=== PATIENT | male | born 1975 | race Caucasian/White ===

== ENCOUNTER 2016-11-13 19:58 | Inpatient (IN) ==
[2016-11-13] MEDS ORDERED: PANTOPRAZOLE 40 MG VIAL IV STA (20:48)
[2016-11-13] MEDS ORDERED: METOCLOPRAMIDE 10 MG/2 ML VIAL IV STA (20:48)
[2016-11-13] MEDS ORDERED: ONDANSETRON 4 MG/2 ML VIAL IV STA (20:48)
[2016-11-13] MEDS ORDERED: PANTOPRAZOLE 40 MG VIAL IV ONE (20:53)
[2016-11-13] MEDS ORDERED: METOCLOPRAMIDE 10 MG/2 ML VIAL ONE (20:53)
[2016-11-13] MEDS ORDERED: ONDANSETRON 4 MG/2 ML VIAL ONE (20:53)
--- NOTE | 2016-11-13 20:53 | Emergency Department Note ---
Arrival - Arrival Chief Complaint: Abdominal / Flank Pain Stated Complaint: abd bloating/pain/vomitting/constipation/fever ED Nursing Triage Note: pt presented to triage ambulatory with c/o abd pain and fever x [address] christian saw him on 11/11/16 for same symptoms. pt states no relief with new meds and now c/o n/v Mode of Arrival: Ambulatory Source: Patient Time Seen by Provider: 11/13/16 20:48 - History of Present Illness HPI Narrative: This 40-year-old white male presents 48 hours after his last visit here with complaints of abdominal distention, nausea, vomiting, and constipation. The patient's distention is gotten to the point that he has trouble buttoning his shirt. Of note on his last visit 2 days ago was a totally normal CT scan of the abdomen. He does not complain of chills, fever, heartburn, belching, water brash, or history of prior GI disease. Currently he appears uncomfortable but in no acute distress. Onset (ago): day(s) (Patient presents 5 days post onset of symptoms) Allergies/Adverse Reactions: Allergies Allergy/AdvReac Type Severity Reaction Status Date / Time adhesive tape Allergy Intermediate RASH Verified 11/13/16 20:22 Cefaclor Allergy Intermediate RASH Verified 11/13/16 20:22 Erythromycin Base Allergy Intermediate RASH Verified 11/13/16 20:22 [From Ilosone] promethazine [From Phenergan] Allergy Intermediate RASH Verified 11/13/16 20:22 Home Medications: Home Medications Medication Instructions Recorded Confirmed Type Ciprofloxacin Tab [Cipro Tab] 500 mg PO Q12HR 10 Days 11/11/16 Rx Dicyclomine Cap/Tab [Bentyl 20 mg PO QID PRN #20 tablet 11/11/16 Rx Cap/Tab] Ondansetron [Ondansetron Odt] 8 mg PO Q4H PRN #10 tab.rapdis 11/11/16 Rx Pramipexole Di-HCl [Mirapex] 0.75 mg PO BEDTIME 11/11/16 11/11/16 History metroNIDAZOLE TAB [Flagyl Tab] 250 mg PO TID 10 Days 11/11/16 Rx Review of System - Review of System 12 point system: reviewed and no additional remarkable complaints except as stated - Review of System Constitutional: Present: as per HPI Gastrointestinal: Present: as per HPI Medical,Surgical,& Family Hx - Medical History Respiratory: History of: Obstructive Sleep Apnea - Social History Smoking Status: Never smoker Frequency of Alcohol Use: None Type of Drug Use: None Exam Physical Examination: GENERAL: Obese white male in no acute distress. HEENT: Normocephalic. No trauma. Moist mucous membranes. EOMI. PERRLA. ENT NML NECK: Supple. No adenopathy. CARDIAC: Regular. No murmurs. Heart rate 93 CHEST: Clear to auscultation. No respiratory distress. O2 sat 97% ABDOMEN: Firm, distended, with upper quadrant tenderness and hypoactive bowel sounds. EXTREMITIES: No trauma. Normal ROM. No pedal edema. SKIN: No diaphoresis. No rash. NEURO: Alert. Neuro intact. No focal deficits. Vital Signs: Vital Signs Temperature 98.5 F 11/13/16 21:22 Pulse Rate 93 H 11/13/16 21:22 Respiratory Rate 18 11/13/16 21:22 Blood Pressure 129/98 11/13/16 21:22 O2 Sat by Pulse Oximetry 97 11/13/16 20:23 Course - Reevaluation(s) Reevaluation #1: Advised patient he would require hospitalization for further evaluation of early onset pancreatitis - Consultations Consultation #1: Discussed with hospitalist service who will admit for further evaluation treatment. Results - Labs CBC & BMP: 11/13/16 20:36 11/13/16 20:36 Labs: I have reviewed the laboratory noted its gross normality. - Diagnostic Findings Procedure: Abdominal x-ray: image reviewed by me, report reviewed by me ( Diffuse feces and colonic gas with some stacking of small bowel), CT Abdomen and Pelvis: image reviewed by me, report reviewed by me (Evidence of early pancreatitis) Disposition Clinical Impression: Pancreatitis Case discussed with: patient, patient's family Disposition: Still a Patient Condition: Guarded Time of Disposition: 00:48
[2016-11-13 20:54] LABS: Basophils # 0.1 10*3/uL (0.0-0.2); Basophils % 0.7 % (0.0-0.8); Eosinophils # 0.2 10*3/uL (0.0-0.87); Eosinophils % 2.6 % (0.00-10.9); Hemoglobin 14.6 GM/DL (14.0-18.0); Immature Granulocytes % 0.4 %; Immature Granulocytes Absolute 0.04 #; Lymphocytes # 2.5 10*3/uL (1.4-4.0); Lymphocytes % 27.6 % (21.2-54.2); Mean Corpuscular HGB Conc 33.2 GM/DL (32-36); Mean Corpuscular Hemoglobin 29 PG (27-34); Mean Corpuscular Volume 86.3 FL (87-102); Mean Platelet Volume 9.7 FL (9.6-12.0); Monocytes # 0.8 10*3/uL (0.11-0.8); Monocytes % 8.7 % (1.7-12.7); Neutrophils # 5.4 10*3/uL (1.4-7.4); Platelet Count 308 T/CUMM (130-400); Red Cell Distribution Width 13.6 % (9.3-17.3); White Blood Count 9.1 T/CUMM (4-12)
[2016-11-13 21:10] LABS: Alanine Aminotransferase 48 U/L (16-61); Albumin 3.4 G/DL (3.4-5.0); Alkaline Phosphatase 65 U/L (45-117); Amylase 75 U/L (25-115); Aspartate Amino Transferase 32 U/L (0-37); Bilirubin,Total < 0.39 MG/DL (0.2-1.0); Blood Urea Nitrogen 15 MG/DL (7-18); Glucose 93 MG/DL (74-106); Osmolality,Calculated 281.3 MOS/KG (273-304); Potassium 3.5 MMOL/L (3.5-5.1); Sodium 141 MMOL/L (136-145); Total Protein 7.5 G/DL (6.4-8.3)
[2016-11-13 21:33] LABS: Lactic Acid 1.5 MMOL/L (0.4-2.0)
[2016-11-13] MEDS ORDERED: SODIUM CHLORIDE 0.9% 1,000 ML IV STA (22:00)
[2016-11-13 23:31] LABS: Apearance,Urine CLEAR (Clear); Bilirubin,Urine Negative (Negative); Blood, Urine Negative (Negative); Glucose,Urine (UA) Negative (Negative); Ketones,Urine Negative (Negative); Mucus,Urine Occasional /LPF (Occasional); Nitrite,Urine Negative (Negative); Protein,Urine Negative; Squamous Epithelial Cell,Urine Occasional /HPF (0-10); Urine Color Yellow (Yellow); Urine Specific Gravity 1.014 (1.001-1.035); Urine Urobilinogen < 2.0 EU/DL (0.2-1.0)
[2016-11-14] MEDS ORDERED: SODIUM CHLORIDE 0.9% 1,000 ML IV SCH (02:33)
[2016-11-14] MEDS ORDERED: MORPHINE 2 MG/1 ML SYRINGE IV PRN (02:33)
[2016-11-14] MEDS ORDERED: ONDANSETRON 4 MG/2 ML VIAL IV PRN (02:33)
[2016-11-14] MEDS ORDERED: KETOROLAC 30 MG/1 ML VIAL IV PRN (02:33)
[2016-11-14] MEDS: CIPROFLOXACIN INJ 400 MG in PREMIX 1 EACH IV SCH ×2 (03:11→22:00)
[2016-11-14] MEDS: metroNIDAZOLE INJ 500 MG in PREMIX 1 EACH IV SCH ×3 (04:57→20:17)
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
[2016-11-14] MEDS ORDERED: ONDANSETRON ODT 4 MG TABLET PO PRN (05:40)
[2016-11-14] MEDS ORDERED: ZALEPLON 5 MG CAPSULE PO PRN ×2 (05:40→20:27)
[2016-11-14 06:32] LABS: Basophils # 0.1 10*3/uL (0.0-0.2); Basophils % 0.8 % (0.0-0.8); Eosinophils # 0.2 10*3/uL (0.0-0.87); Eosinophils % 2.7 % (0.00-10.9); Hematocrit 39.9 VOL% (42.0-52.0); Hemoglobin 13.4 GM/DL (14.0-18.0); Immature Granulocytes % 0.4 %; Immature Granulocytes Absolute 0.03 #; Lymphocytes # 2.1 10*3/uL (1.4-4.0); Lymphocytes % 27.1 % (21.2-54.2); Mean Corpuscular HGB Conc 33.6 GM/DL (32-36); Mean Corpuscular Hemoglobin 29 PG (27-34); Mean Corpuscular Volume 86.7 FL (87-102); Mean Platelet Volume 9.9 FL (9.6-12.0); Monocytes # 0.7 10*3/uL (0.11-0.8); Monocytes % 9.3 % (1.7-12.7); Neutrophils # 4.6 10*3/uL (1.4-7.4); Neutrophils % 59.7 % (38.7-73.9); Platelet Count 257 T/CUMM (130-400); White Blood Count 7.8 T/CUMM (4-12)
--- NOTE | 2016-11-14 06:33 | XRay Report ---
XR abdomen 2V Indication: Abdominal pain Comparison: 11 November 2016 Findings: No free fluid or free air seen. Increased stool volume is seen in the colon. The bowel gas pattern otherwise appears within normal limits. No abnormal calcifications are present. No other abnormality is identified. Impression: Increased stool volume in the colon, may indicate constipation. PROCEDURE INTERPRETED AT [facility] DEPARTMENT OF RADIOLOGY Final Report Signed by: Dr. Yo Pryor
--- NOTE | 2016-11-14 06:58 | CT Report ---
CT abdomen pelvis Indication: Abdominal pain Comparison: None available Technique: Axial CT imaging of the abdomen and pelvis is performed with intravenous and oral contrast. Contrast dose is 100 cc of Omnipaque 350. Findings: Cardiac and lung bases are within normal limits CT abdomen: Trace amount of stranding is seen adjacent to the inferior tail of the pancreas. Remaining pancreas appears within normal limits The liver spleen and adrenal glands are normal in size and enhancement. No evidence of focal lesion is demonstrated in these solid organs. Kidneys are normal in size and enhancement. No evidence of hydronephrosis or nephrolithiasis is seen. The bowel caliber is normal and no wall thickening or adjacent inflammatory change is seen. No evidence of free fluid or free air is present. Appendix appears normal. CT pelvis: The pelvic bowel appears within normal limits. Bladder shows no evidence of abnormality. The pelvic organs show no evidence of abnormality Impression: Trace amount of stranding adjacent to tail of pancreas may indicate mild pancreatitis. This CT exam was performed using one or more the following dose reduction techniques: Automated exposure control, adjustment of the MA and/or KV according to patient size, or use of iterative reconstruction technique. PROCEDURE INTERPRETED AT [facility] DEPARTMENT OF RADIOLOGY Final Report Signed by: Dr. Yo Pryor
[2016-11-14 07:11] LABS: Albumin 2.9 G/DL (3.4-5.0); Bilirubin,Total 1.5 MG/DL (0.2-1.0); Calcium 8.1 MG/DL (8.5-10.1); Osmolality,Calculated 279.4 MOS/KG (273-304); Potassium 3.7 MMOL/L (3.5-5.1); Risk Ratio 3.49; Total Protein 6.2 G/DL (6.4-8.3); VLDL CHOLESTEROL 35.6 MG/DL
--- NOTE | 2016-11-14 07:51 | Ultrasound Report ---
Right upper quadrant ultrasound Indication: Abdominal Pain Findings: The liver is normal in size and echogenicity. The gallbladder is fluid-filled without evidence of stones or sludge. The gallbladder wall thickness is 3.0 mm . The common bile duct measures 8.0 mm. The visualized portion of the pancreas appear within normal limits The right kidney is normal in size and echogenicity and measures 12.3 cm . No free fluid or free air seen. Impression: No evidence of abnormality demonstrated. Ultrasound images stored and captured. PROCEDURE INTERPRETED AT [facility] DEPARTMENT OF RADIOLOGY Final Report Signed by: Dr. Yo Pryor
--- NOTE | 2016-11-14 09:01 | Hospitalist Progress Note ---
Assessment and Plan (1) Hypertension Status: Acute Assessment and plan: His blood pressure today is 132/71. I will continue his home medications. Current Visit: Yes Qualifiers: Hypertension type: essential hypertension Qualified Code(s): I10 - Essential (primary) hypertension (2) Pancreatitis Status: Acute Assessment and plan: Continues to have moderate abdominal pain. He is not experiencing nausea and vomiting. CT scan of the abdomen and pelvis demonstrated stranding of the tail of the pancreas and no abnormalities of the gallbladder. An ultrasound of the gallbladder demonstrated it to be normal. Laboratory testing demonstrated amylase 75, lipase 176, normal ALT and AST, and total bilirubin 1.5. I have consulted gastroenterology for further evaluation. In the meantime he is n.p.o. and is receiving intravenous sodium chloride infusion. Current Visit: Yes Qualifiers: Chronicity: acute Pancreatitis type: idiopathic Acute pancreatitis complication: no infection or necrosis Qualified Code(s): K85.00 - Idiopathic acute pancreatitis without necrosis or infection Hospitalist: Subjective Interval history: Patient was admitted to the hospital last night with pancreatitis. A CT scan of the abdomen and pelvis and an ultrasound of the gallbladder have demonstrated no significant abnormalities other than pancreatitis of the tail of the pancreas. He continues to experience moderate abdominal pain. He is not experiencing nausea and vomiting. He has been placed on an n.p.o. diet. Exam - Constitutional Vitals: Period Temp Pulse Resp BP Sys/Crawford Pulse Ox Last 24 Hr 96.2 F-98.5 F 65-93 18-22 111-132/66-98 93-97 General appearance: no acute distress, over weight - Head Head exam: Present: normal inspection - Neck Neck exam: Present: normal inspection - Respiratory Respiratory exam: Present: clear to auscultation bilaterally - Cardiovascular Cardiovascular exam: Present: regular rate and rhythm - GI/Abdominal GI/Abdominal exam: Present: normal bowel sounds, soft, other (Nontender with no palpable masses or hepatosplenomegaly.) - Extremities Exam Extremities exam: Present: normal inspection - Skin Skin exam: Present: normal color, warm, intact Results - Labs CBC & BMP: 11/14/16 05:34 11/14/16 05:34
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
[2016-11-14] MEDS: SODIUM CHLOR 0.9% KCL 20 MEQ 20 MEQ/1,000 ML BAG IV SCH ×2 (11:36→20:16)
[2016-11-14] MEDS: DOCUSATE SODIUM 100 MG CAPSULE PO PRN ×2 (11:42→20:16)
[2016-11-14] MEDS: ATENOLOL/CHLORTHALIDONE 50-25 MG TABLET PO SCH (11:42)
[2016-11-14] MEDS: PANTOPRAZOLE 40 MG TABLET PO SCH (11:42)
[2016-11-14] MEDS: ENOXAPARIN 40 MG/0.4 ML SYRINGE SUBCUT SCH (15:35)
[2016-11-14] MEDS: PRAMIPEXOLE 0.25 MG TABLET PO SCH (20:16)
[2016-11-14] MEDS ORDERED: ZOLPIDEM 5 MG TABLET PO PRN (20:51)
[2016-11-15] MEDS: metroNIDAZOLE INJ 500 MG in PREMIX 1 EACH IV SCH ×3 (03:19→22:18)
[2016-11-15 06:24] LABS: Basophils # 0.1 10*3/uL (0.0-0.2); Basophils % 0.5 % (0.0-0.8); Eosinophils # 0.2 10*3/uL (0.0-0.87); Hematocrit 42.5 VOL% (42.0-52.0); Hemoglobin 13.9 GM/DL (14.0-18.0); Immature Granulocytes % 0.4 %; Immature Granulocytes Absolute 0.04 #; Lymphocytes % 20.5 % (21.2-54.2); Mean Corpuscular HGB Conc 32.7 GM/DL (32-36); Mean Corpuscular Hemoglobin 29 PG (27-34); Mean Corpuscular Volume 87.6 FL (87-102); Mean Platelet Volume 10.1 FL (9.6-12.0); Monocytes # 0.8 10*3/uL (0.11-0.8); Monocytes % 7.9 % (1.7-12.7); Neutrophils # 6.7 10*3/uL (1.4-7.4); Neutrophils % 68.7 % (38.7-73.9); Platelet Count 291 T/CUMM (130-400); Red Blood Count 4.85 MC/CUMM (3.8-5.5); Red Cell Distribution Width 14.2 % (9.3-17.3); White Blood Count 9.7 T/CUMM (4-12)
[2016-11-15 06:48] LABS: Albumin 3.1 G/DL (3.4-5.0); Calcium 8.4 MG/DL (8.5-10.1); Osmolality,Calculated 277.4 MOS/KG (273-304); Potassium 4.2 MMOL/L (3.5-5.1); Total Protein 6.6 G/DL (6.4-8.3)
[2016-11-15] MEDS: CIPROFLOXACIN INJ 400 MG in PREMIX 1 EACH IV SCH ×2 (09:54→20:46)
--- NOTE | 2016-11-15 10:57 | Hospitalist Progress Note ---
Assessment and Plan (1) Hypertension Status: Acute Assessment and plan: His blood pressure today is 128/79. I will continue his home medications. Current Visit: Yes Qualifiers: Hypertension type: essential hypertension Qualified Code(s): I10 - Essential (primary) hypertension (2) Pancreatitis Status: Acute Assessment and plan: Continues to have moderate abdominal pain. He is not experiencing nausea and vomiting. CT scan of the abdomen and pelvis demonstrated stranding of the tail of the pancreas and no abnormalities of the gallbladder. An ultrasound of the gallbladder demonstrated it to be normal. Laboratory testing today demonstrates lipase 114, amylase 54, and total bilirubin 1.0. He is to undergo an EGD today by gastroenterology. Current Visit: Yes Qualifiers: Chronicity: acute Pancreatitis type: idiopathic Acute pancreatitis complication: no infection or necrosis Qualified Code(s): K85.00 - Idiopathic acute pancreatitis without necrosis or infection Hospitalist: Subjective Interval history: Patient feels somewhat better today. He was seen in consultation yesterday by gastroenterology who is to perform an EGD today. Exam - Constitutional Vitals: Period Temp Pulse Resp BP Sys/Crawford Pulse Ox Last 24 Hr 96.9 F-98.2 F 59-88 18-22 110-128/57-79 93-99 General appearance: no acute distress - Head Head exam: Present: normal inspection - Neck Neck exam: Present: normal inspection - Respiratory Respiratory exam: Present: clear to auscultation bilaterally - Cardiovascular Cardiovascular exam: Present: regular rate and rhythm - GI/Abdominal GI/Abdominal exam: Present: normal bowel sounds, soft, other (Nontender with no palpable masses or hepatosplenomegaly.) - Extremities Exam Extremities exam: Present: normal inspection - Skin Skin exam: Present: normal color, warm, intact Results - Labs CBC & BMP: 11/15/16 05:27 11/15/16 05:27
--- NOTE | 2016-11-15 12:17 | History and Physical Update ---
History and Physical Update - Physical Exam Mental Status: alert and oriented Heart: regular rate and rhythm Lung: clear to auscultation Abdomen: within normal limits Vitals: within normal limits
--- NOTE | 2016-11-15 12:18 | Operative Note ---
Pre-op diagnosis: Epigastric pain Procedure: EGD 40-year-old gentleman with epigastric pain now for EGD to further evaluate. Informed consent was obtained the patient He was sedated with MAC anesthesia per anesthesia protocol. Patient placed in left lateral decubitus position the Olympus flexible video upper endoscope was inserted into the oral cavity under direct vision the esophagus was intubated. Findings: Esophagus-normal esophageal mucosa throughout the esophagus Stomach-normal insufflation normal mucosa to direct retroflexed views of the body fundus cardia and antrum the stomach. Pylorus-normal Duodenum-normal bulb duodenum to the proximal jejunum. The procedure terminated placed our procedure well recommendations: 1. Proceed with MRI with MRCP protocol #2 antacids as needed Anesthesia: MAC Surgeon / Physician: Mayo Klein Estimated blood loss: none Specimens: none sent Condition: stable Disposition: post procedure unit Results - Labs CBC & BMP: 11/15/16 05:27 11/15/16 05:27 Discharge Plan - Discharge Medications No Action Pramipexole Di-HCl [Mirapex] 0.75 mg PO BEDTIME Ciprofloxacin Tab [Cipro Tab] 500 mg PO Q12HR 10 Days Dicyclomine Cap/Tab [Bentyl Cap/Tab] 20 mg PO QID PRN #20 tablet PRN Reason: Abdominal Pain Ondansetron [Ondansetron Odt] 8 mg PO Q4H PRN #10 tab.rapdis PRN Reason: Nausea metroNIDAZOLE TAB [Flagyl Tab] 250 mg PO TID 10 Days Atenolol/Chlorthalidone 50-25 [Tenoretic 50-25] 1 tablet PO DAILY Zolpidem [Ambien] 10 mg PO BEDTIME PRN PRN Reason: Sleep - Follow Up or Referral - Forms/Instructions
--- NOTE | 2016-11-15 12:30 | Anesthesia Post-Op ---
Anesthesia Post OP - Post Ansesthetic Evaluation Patient seen in post op: Yes Resp: within normal limits CV: within normal limits Mental: within normal limits Temp: within normal limits Nkql-Mw-Htzcrydsh: within normal limits Nausea and Vomiting: within normal limits Pain: within normal limits
[2016-11-15] MEDS: ATENOLOL/CHLORTHALIDONE 50-25 MG TABLET PO SCH (16:05)
[2016-11-15] MEDS: PANTOPRAZOLE 40 MG TABLET PO SCH (16:05)
[2016-11-15] MEDS: DOCUSATE SODIUM 100 MG CAPSULE PO PRN (16:05)
[2016-11-15] MEDS: ENOXAPARIN 40 MG/0.4 ML SYRINGE SUBCUT SCH (16:05)
[2016-11-15] MEDS: SODIUM CHLOR 0.9% KCL 20 MEQ 20 MEQ/1,000 ML BAG IV SCH (18:04)
[2016-11-15] MEDS: PRAMIPEXOLE 0.25 MG TABLET PO SCH (20:46)
[2016-11-16] MEDS: metroNIDAZOLE INJ 500 MG in PREMIX 1 EACH IV SCH ×3 (04:09→20:45)
[2016-11-16] MEDS: SODIUM CHLOR 0.9% KCL 20 MEQ 20 MEQ/1,000 ML BAG IV SCH ×2 (06:40→19:30)
--- NOTE | 2016-11-16 08:52 | Hospitalist Progress Note ---
Assessment and Plan (1) Hypertension Status: Acute Assessment and plan: His blood pressure today is 95/56. I will temporarily hold his atenolol and chlorthalidone. Current Visit: Yes Qualifiers: Hypertension type: essential hypertension Qualified Code(s): I10 - Essential (primary) hypertension (2) Pancreatitis Status: Acute Assessment and plan: He continues to have moderate abdominal pain. He is not experiencing nausea and vomiting. Laboratory testing yesterday demonstrated normal total bilirubin , amylase, and lipase. EGD yesterday was normal. He is scheduled to undergo an MRI of the abdomen and MRCP today. I will change his diet to clear liquid. Current Visit: Yes Qualifiers: Chronicity: acute Pancreatitis type: idiopathic Acute pancreatitis complication: no infection or necrosis Qualified Code(s): K85.00 - Idiopathic acute pancreatitis without necrosis or infection Hospitalist: Subjective Interval history: Patient underwent an EGD yesterday demonstrating no abnormalities. He is scheduled to undergo an MRI and MRCP today. He attempted eating solid food last night which caused him considerable abdominal discomfort. I discussed with with him that we will return to a liquid diet. Exam - Constitutional Vitals: Period Temp Pulse Resp BP Sys/Crawford Pulse Ox Last 24 Hr 96.1 F-98.8 F 67-82 16-24 92-132/54-80 95-99 General appearance: no acute distress - Head Head exam: Present: normal inspection - Neck Neck exam: Present: normal inspection - Respiratory Respiratory exam: Present: clear to auscultation bilaterally - Cardiovascular Cardiovascular exam: Present: regular rate and rhythm - GI/Abdominal GI/Abdominal exam: Present: normal bowel sounds, soft, other (Nontender with no palpable masses or hepatosplenomegaly.) - Extremities Exam Extremities exam: Present: normal inspection - Skin Skin exam: Present: normal color, warm, intact Results - Labs CBC & BMP: 11/15/16 05:27 11/15/16 05:27
[2016-11-16] MEDS: PANTOPRAZOLE 40 MG TABLET PO SCH (09:26)
[2016-11-16] MEDS: CIPROFLOXACIN INJ 400 MG in PREMIX 1 EACH IV SCH ×2 (09:27→22:12)
[2016-11-16] MEDS: ENOXAPARIN 40 MG/0.4 ML SYRINGE SUBCUT SCH (09:30)
--- NOTE | 2016-11-16 10:24 | Gastrointestinal Progress Note ---
<Lucy Nunez Missy - Last Filed: 11/16/16 10:21> Assessment and Plan (1) Abdominal pain Status: Acute Assessment and plan: 11/16-no complaints of abdominal pain, nausea vomiting. EGD findings noted as below. Awaiting MRCP this morning. Plan an addendum to follow by Dr. Klein. 11/14-2 week history of abdominal pain with recent constipation, nausea vomiting. Findings on admission of mild pancreatitis on CT scan. Lipase 176. Other lab values as mentioned below. Change patient back to clear liquid diet ( pt request) at present time and continue to monitor. Plan an addendum to followed by Dr. Klein Current Visit: No Gastroenterology - PN: Subj Interval history: CC: Epigastric pain, pancreatitis Pt is seen, awake and alert lying in bed. States that he is feeling better today. No reports of nausea or vomiting. Denies abdominal pain at this time. He is awaiting MRCP this morning. EGD with no acute findings. Abdomen is soft, nontender. ROS: Denies SOB or chest pain Exam (Progress Note) - Constitutional Vitals: Period Temp Pulse Resp BP Sys/Crawford Pulse Ox Last 24 Hr 96.1 F-98.8 F 67-82 16-24 92-132/54-80 95-99 General appearance: normal weight, no acute distress - Head Head exam: Present: normal inspection, normocephalic - Eye Eye exam: Present: other (lids and conjuncitva unremarkable). Absent: scleral icterus - ENT ENT exam: Present: normal exam, normal oropharynx - Neck Neck exam: Present: normal inspection - Respiratory Respiratory exam: Present: clear to auscultation bilaterally. Absent: rales, rhonchi, wheezes - Cardiovascular Cardiovascular exam: Present: regular rate and rhythm. Absent: diastolic murmur , JVD, systolic murmur - GI/Abdominal GI/Abdominal exam: Present: normal bowel sounds, soft. Absent: ascites, distended, mass, organomegaly, tenderness - Extremities Exam Extremities exam: Present: normal inspection, full ROM - Back Exam Back exam: Present: normal inspection - Neurological Exam Neurological exam: Present: alert, oriented X3 - Psychiatric Psychiatric exam: Present: normal affect, normal mood - Skin Skin exam: Present: normal color, warm, dry Results - Labs CBC & BMP: 11/15/16 05:27 11/15/16 05:27 Lab Results: I have reviewed the past 24 hour labs <Mayo Klein - Last Filed: 11/16/16 19:53> Exam (Progress Note) - Constitutional Vitals: Period Temp Pulse Resp BP Sys/Crawford Pulse Ox Last 24 Hr 96.6 F-98.8 F 67-82 20-22 92-132/54-73 95-98 Results - Labs CBC & BMP: 11/15/16 05:27 11/15/16 05:27
--- NOTE | 2016-11-16 16:37 | Magnetic Resonance Report ---
MR of abdomen Indication: Pancreatitis Technique: The axial and coronal imaging of the abdomen is performed both prior to and after contrast. Contrast dose is 20 cc Dotarem. Computer reconstruction of the biliary system and pancreatic ducts are generated. Findings: Pancreatic duct and biliary ducts appear normal in caliber. No areas of abnormal signal are identified within the liver spleen kidneys or adrenal glands. There is a small amount of the edema and stranding inferior to the junction of the body and tail of the pancreas. The adjacent pancreas at this location appears slightly enlarged and edematous. This does not appear to significantly enhance on the contrasted images when compared to the precontrast study. No other focal pancreatic abnormality or abnormal enhancement is seen. Impression: Small amount of edema and adjacent stranding within the pancreas at the junction of the pancreatic tail and body. The pancreas is slightly enlarged at this location without distinct focal lesion, could indicate focal pancreatitis. Follow-up CT after improvement may be useful to establish stability. PROCEDURE INTERPRETED AT [facility] DEPARTMENT OF RADIOLOGY Final Report Signed by: Dr. Yo Pryor
[2016-11-16] MEDS: PRAMIPEXOLE 0.25 MG TABLET PO SCH (20:45)
[2016-11-17] MEDS: metroNIDAZOLE INJ 500 MG in PREMIX 1 EACH IV SCH ×2 (04:09→11:21)
[2016-11-17 06:37] LABS: Basophils % 0.5 % (0.0-0.8); Eosinophils # 0.2 10*3/uL (0.0-0.87); Eosinophils % 1.7 % (0.00-10.9); Hematocrit 39.7 VOL% (42.0-52.0); Hemoglobin 13.4 GM/DL (14.0-18.0); Immature Granulocytes % 0.3 %; Immature Granulocytes Absolute 0.03 #; Lymphocytes # 1.7 10*3/uL (1.4-4.0); Lymphocytes % 19.6 % (21.2-54.2); Mean Corpuscular HGB Conc 33.8 GM/DL (32-36); Mean Corpuscular Hemoglobin 29 PG (27-34); Mean Corpuscular Volume 86.5 FL (87-102); Mean Platelet Volume 10.2 FL (9.6-12.0); Monocytes # 0.8 10*3/uL (0.11-0.8); Monocytes % 8.7 % (1.7-12.7); Neutrophils # 6.1 10*3/uL (1.4-7.4); Neutrophils % 69.2 % (38.7-73.9); Platelet Count 308 T/CUMM (130-400); Red Blood Count 4.59 MC/CUMM (3.8-5.5); Red Cell Distribution Width 14.4 % (9.3-17.3); White Blood Count 8.9 T/CUMM (4-12)
[2016-11-17 07:06] LABS: Albumin 3.1 G/DL (3.4-5.0); Bilirubin,Total 1.4 MG/DL (0.2-1.0); Calcium 8.6 MG/DL (8.5-10.1); Osmolality,Calculated 278.4 MOS/KG (273-304); Potassium 4.2 MMOL/L (3.5-5.1); Total Protein 6.5 G/DL (6.4-8.3)
--- NOTE | 2016-11-17 08:05 | Discharge Summary ---
Hospital Course - Hospital Course Hospital Course: Mr. Mc is a 40 year old male who was admitted to the hospital with 2 week history of abdominal pain. Patient states that he was in his usual state of health until 2 weeks ago when he began having a dull aching pain in his epigastric region. He states that the pain did not seem to be affected by meals or any other factors however it was associated with abdominal discomfort and bloating. He states he did not have any nausea or vomiting as well however he states several days ago he became constipated which was very unusual for him. He states that you could typically "set the clock by my bowels". He could not find relief from his discomfort despite any measure therefore he came to the emergency room on 11/11. He had a CT of the abdomen with contrast at that time which showed no acute abdominal findings, pancreas unremarkable, and mild fatty liver. He was discharged home on Cipro and Flagyl, felt to have some mild colitis. Patient states the pain continued however on yesterday the pain became more intense in his midepigastric region radiating across his left upper quadrant. He also developed some nausea vomiting along with this. He returned back to the emergency room at that time for further evaluation and reported that he had been running a low-grade fever off and on with this he had a repeat CT of the abdomen which showed some mild pancreatic stranding. Lipase level was at 176. His triglycerides are elevated at 178. Bilirubin is elevated today at 1.50 with normal transaminases. He also had an abdominal ultrasound with no acute findings, no findings of sludge or stones, and mention of a common bile duct at 8 mm. Patient states that he has no prior history of gallbladder disease in the past. He states that he has no prior history of pancreatitis in the past. He denies any recent medication changes however states that 3 months ago he was receiving a type of injection for weight loss however he has not taken this in the past 3 months. He states he does not smoke or drink. Denies taking any iazk-sze-cuaiaqd supplements. Denies any recent illnesses and states he is fairly healthy other than this. Mr. Mc was admitted to the hospital with a diagnosis of pancreatitis.Laboratory studies demonstrated amylase 75, lipase 176, total bilirubin 1.5, and normal ALT and AST. Patient was placed on bowel rest and intravenous sodium chloride 0.9% intravenous infusion. He was treated with analgesics and anti-emetics as necessary. He was seen in consultation by Dr. Klein of gastroenterology who performed an EGD on 11/15/16. The EGD demonstrated no significant abnormalities. He underwent an MRI of the abdomen demonstrating findings compatible with pancreatitis and no evidence of cystic duct or pancreatic duct calculi. He improved significantly during his hospitalization. At the time of discharge she was comfortable and eating without difficulty. Diagnosis - Discharge Diagnosis (1) Hypertension Status: Chronic (2) Pancreatitis Status: Acute Discharge Plan - Discharge Data Disposition: Disch To Home/Self Care Condition at Discharge: Stable Discharge Diet: advance to your usual diet Activity: resume usual activities as tolerated - Discharge Medications Continue Pramipexole Di-HCl [Mirapex] 0.75 mg PO BEDTIME Dicyclomine Cap/Tab [Bentyl Cap/Tab] 20 mg PO QID PRN #20 tablet PRN Reason: Abdominal Pain Ondansetron [Ondansetron Odt] 8 mg PO Q4H PRN #10 tab.rapdis PRN Reason: Nausea metroNIDAZOLE TAB [Flagyl Cap/Tab] 250 mg PO TID 10 Days Atenolol/Chlorthalidone 50-25 [Tenoretic 50-25] 1 tablet PO DAILY Zolpidem [Ambien] 10 mg PO BEDTIME PRN PRN Reason: Sleep Discontinued Ciprofloxacin Tab [Cipro Tab] 500 mg PO Q12HR 10 Days - Follow Up or Referral - Forms/Instructions Exam - Constitutional Vitals: Period Temp Pulse Resp BP Sys/Crawford Pulse Ox Last 24 Hr 96.2 F-98.4 F 75-97 20-22 96-134/57-86 90-98 Discharge Results Procedures and tests throughout hospitalization: Pending Orders 11/13/16 20:55 Blood Culture Stat Labs on day of discharge: Labs from last 24 hours 11/17/16 11/17/16 11/17/16 07:04 06:00 06:00 WBC 8.9 RBC 4.59 Hgb 13.4 L Hct 39.7 L MCV 86.5 L MCH 29 MCHC 33.8 RDW 14.4 Plt Count 308 MPV 10.2 Neut % (Auto) 69.2 Lymph % (Auto) 19.6 L Brooke % (Auto) 8.7 Eos % (Auto) 1.7 Baso % (Auto) 0.5 Neut # (Auto) 6.1 Lymph # (Auto) 1.7 Brooke # (Auto) 0.8 Eos # (Auto) 0.2 Baso # (Auto) 0.0 Immature Gran % 0.3 Nucleated RBC % 0.0 Immature Gran # 0.03 Nucleated RBCs # 0.00 Immature Plt Fraction 0.0 Sodium 140 Potassium 4.2 Chloride 103 Carbon Dioxide 31 Anion Gap 10.2 BUN 12 Creatinine 1.20 GFR Calculation 106 BUN/Creatinine Ratio 10.00 Glucose 102 POC Glucose 121 H Calculated Osmolality 278.4 Calcium 8.6 Total Bilirubin 1.40 H AST 54 H ALT 69 H Alkaline Phosphatase 55 Total Protein 6.5 Albumin 3.1 L Globulin 3.4 Albumin/Globulin Ratio 0.9 L Amylase 50 Lipase 110.0 11/16/16 11/16/16 11/16/16 18:33 15:38 11:25 WBC RBC Hgb Hct MCV MCH MCHC RDW Plt Count MPV Neut % (Auto) Lymph % (Auto) Brooke % (Auto) Eos % (Auto) Baso % (Auto) Neut # (Auto) Lymph # (Auto) Brooke # (Auto) Eos # (Auto) Baso # (Auto) Immature Gran % Nucleated RBC % Immature Gran # Nucleated RBCs # Immature Plt Fraction Sodium Potassium Chloride Carbon Dioxide Anion Gap BUN Creatinine GFR Calculation BUN/Creatinine Ratio Glucose POC Glucose 120 H 80 90 Calculated Osmolality Calcium Total Bilirubin AST ALT Alkaline Phosphatase Total Protein Albumin Globulin Albumin/Globulin Ratio Amylase Lipase 11/16/16 07:45 WBC RBC Hgb Hct MCV MCH MCHC RDW Plt Count MPV Neut % (Auto) Lymph % (Auto) Brooke % (Auto) Eos % (Auto) Baso % (Auto) Neut # (Auto) Lymph # (Auto) Brooke # (Auto) Eos # (Auto) Baso # (Auto) Immature Gran % Nucleated RBC % Immature Gran # Nucleated RBCs # Immature Plt Fraction Sodium Potassium Chloride Carbon Dioxide Anion Gap BUN Creatinine GFR Calculation BUN/Creatinine Ratio Glucose POC Glucose 107 H Calculated Osmolality Calcium Total Bilirubin AST ALT Alkaline Phosphatase Total Protein Albumin Globulin Albumin/Globulin Ratio Amylase Lipase Preliminary micro results at discharge 11/13/16 20:55 Blood Culture - Preliminary Blood No growth at 3 days 11/13/16 20:35 Blood Culture - Preliminary Blood No growth at 3 days DS: Provider Date of admission: 11/14/16 01:30 Primary care physician: Santi Ojeda Attending physician on admission: Mani Rodriguez MD Consults: 11/14/16 08:35 Consult to Physician [CONS] Routine Comment: pancreatitis Consulting Provider: Mayo Klein Consult to Specialist Group: Gastroenterology When should Consulting Provider be notified: Now Person Notified: JEB Date Notified: 11/14/16 Time Notified: 09:27 Discharging clinician: Herve Melissa
[2016-11-17] MEDS: ENOXAPARIN 40 MG/0.4 ML SYRINGE SUBCUT SCH (08:17)
[2016-11-17] MEDS: PANTOPRAZOLE 40 MG TABLET PO SCH (08:17)
[2016-11-17] MEDS: DOCUSATE SODIUM 100 MG CAPSULE PO PRN (08:17)
[2016-11-17] MEDS: CIPROFLOXACIN INJ 400 MG in PREMIX 1 EACH IV SCH (08:31)
[2016-11-17] MEDS: SODIUM CHLOR 0.9% KCL 20 MEQ 20 MEQ/1,000 ML BAG IV SCH (09:50)
--- NOTE | 2016-11-17 10:26 | Gastrointestinal Progress Note ---
<EnriqueLucy Missy - Last Filed: 11/17/16 10:24> Assessment and Plan (1) Abdominal pain Status: Acute Assessment and plan: 11/17-MRI results noted. Abd pain improved, tolerating diet. For discharge home today. Plan and addendum to follow by Dr Klein. 11/16-no complaints of abdominal pain, nausea vomiting. EGD findings noted as below. Awaiting MRCP this morning. Plan an addendum to follow by Dr. Klein. 11/14-2 week history of abdominal pain with recent constipation, nausea vomiting. Findings on admission of mild pancreatitis on CT scan. Lipase 176. Other lab values as mentioned below. Change patient back to clear liquid diet ( pt request) at present time and continue to monitor. Plan an addendum to followed by Dr. Klein Gastroenterology - PN: Subj Interval history: CC: Pancreatitis Pt is seen up and ambulating around the room. States he is feeling much better today and denies any abdominal pain, nausea or vomiting. He is tolerating his diet at this time. His MRCP on yeserday noted to show small amount of edema and stranding within pancreas at junction of pancreatic tail and body. Abdomen is soft, nontender. He brought forth his child is at home sick with a possible stomach virus and is to be discharged home today however encouraged to avoid exposure due to his own recent illness. ROS: Denies SOB or chest pain Exam (Progress Note) - Constitutional Vitals: Period Temp Pulse Resp BP Sys/Crawford Pulse Ox Last 24 Hr 96.2 F-98.4 F 75-97 20-22 96-134/57-86 90-98 General appearance: no acute distress, over weight - Head Head exam: Present: normal inspection, normocephalic - Eye Eye exam: Present: other (lids and conjunctiva unremarkable). Absent: scleral icterus - ENT ENT exam: Present: normal exam, normal oropharynx - Neck Neck exam: Present: normal inspection - Respiratory Respiratory exam: Present: clear to auscultation bilaterally. Absent: rales, rhonchi, wheezes - Cardiovascular Cardiovascular exam: Present: regular rate and rhythm. Absent: diastolic murmur , JVD, systolic murmur - GI/Abdominal GI/Abdominal exam: Present: normal bowel sounds, soft. Absent: ascites, distended, mass, organomegaly, tenderness - Extremities Exam Extremities exam: Present: normal inspection, full ROM - Back Exam Back exam: Present: normal inspection - Neurological Exam Neurological exam: Present: alert, oriented X3 - Psychiatric Psychiatric exam: Present: normal affect, normal mood - Skin Skin exam: Present: normal color, warm, dry Results - Labs CBC & BMP: 11/17/16 06:00 11/17/16 06:00 Lab Results: I have reviewed the past 24 hour labs - Diagnostic Findings Procedure: MRI: report reviewed by me Specialty Discharge - Follow Up or Referrals Follow up with: Mayo Klein MD [Physician] - 12/14/16 2:00 pm <Mayo Klein - Last Filed: 11/17/16 21:40> Exam (Progress Note) - Constitutional Vitals: Period Temp Pulse Resp BP Sys/Crawford Pulse Ox Last 24 Hr 96.2 F-98.8 F 81-102 16-22 96-128/57-73 90-98 Results - Labs CBC & BMP: 11/17/16 06:00 11/17/16 06:00
[2016-11-17 11:41] VITALS: BP 101/57
--- NOTE | 2016-11-18 13:25 | Physician Query Form ---
CLICK EDIT DOCUMENT TO SELECT QUERY ANSWER --> OK --> SIGN Shelia Fuchs RN, CCDS Certified Clinical Research Associate Professor W) [phone] (f) [phone] [email or web address] PROVIDERS: Make your selection(s) from the choices in EACH section by typing an "x" and enter comments in the comment section. Please use your independent medical judgment in providing your response. This request does not imply that any particular answer is desired or expected. CLINICAL INDICATORS: (Providers should not edit this section) Height: 66" Weight: 316# Geospatial Technologist BMI: 51.0# Parlor Maid Notes: Geospatial Technologist Recommendations: The medical record indicates that the patient was admitted with pancreatitis, BMI of 51.0, Height 66", Weight 316#, "General appearance: normal weight, over weight" and based on conflicting documentation as the primary MD can you please clarify if the patient is ? If applicable, please provide an associated diagnosis related to the abnormal BMI: BMI of 40 or greater: ( ) Overweight ( ) Obesity ( x) Morbid//Severe Obesity ( ) Obesity with Alveolar Hypoventilation ( ) Weight Gain ( ) BMI is not significant ( ) Other, please specify: ( ) Clinically unable to determine COMMENTS: PLEASE ALSO DOCUMENT RESPONSE IN PROGRESS NOTES AND/OR DISCHARGE SUMMARY Use of terms such as suspected, likely, or probable (associated with a specific diagnosis that is being evaluated, monitored, or treated as if it exists) are acceptable and can be restated in the discharge summary if not ruled out. MTDD
== END 2016-11-17 12:53 | disposition home or self-care (01) | DRG 439 ==
LOC: N.ED 19:58 → SUATTDRO 11-14 01:30 → N.EDINP 11-14 01:30 → N.2E 11-14 01:58
PROVIDERS: ADMIT Internal Medicine

== ENCOUNTER 2016-11-21 18:07 | Observation (INO) ==
[2016-11-21] MEDS ORDERED: SODIUM CHLORIDE 0.9% 1,000 ML IV STA (20:58)
[2016-11-21] MEDS ORDERED: ONDANSETRON 4 MG/2 ML VIAL IV STA (20:58)
[2016-11-21] MEDS ORDERED: ONDANSETRON 4 MG/2 ML VIAL ONE (21:13)
[2016-11-21 21:22] LABS: Basophils # 0.1 10*3/uL (0.0-0.2); Basophils % 0.7 % (0.0-0.8); Eosinophils # 0.1 10*3/uL (0.0-0.87); Hematocrit 46.3 VOL% (42.0-52.0); Hemoglobin 15.5 GM/DL (14.0-18.0); Immature Granulocytes % 0.3 %; Immature Granulocytes Absolute 0.03 #; Lymphocytes # 2.5 10*3/uL (1.4-4.0); Lymphocytes % 22.7 % (21.2-54.2); Mean Corpuscular HGB Conc 33.5 GM/DL (32-36); Mean Corpuscular Hemoglobin 29 PG (27-34); Mean Corpuscular Volume 86.7 FL (87-102); Mean Platelet Volume 10.2 FL (9.6-12.0); Monocytes # 0.8 10*3/uL (0.11-0.8); Monocytes % 7.5 % (1.7-12.7); Neutrophils # 7.5 10*3/uL (1.4-7.4); Neutrophils % 67.8 % (38.7-73.9); Platelet Count 376 T/CUMM (130-400); Red Blood Count 5.34 MC/CUMM (3.8-5.5); Red Cell Distribution Width 14.6 % (9.3-17.3); White Blood Count 11.1 T/CUMM (4-12)
[2016-11-21 21:27] LABS: Apearance,Urine CLEAR (Clear); Bilirubin,Urine Negative (Negative); Blood, Urine Negative (Negative); Glucose,Urine (UA) Negative (Negative); Ketones,Urine Negative (Negative); Mucus,Urine Occasional /LPF (Occasional); Nitrite,Urine Negative (Negative); Protein,Urine Negative; RBC,Urine 2 /HPF (0-4); Squamous Epithelial Cell,Urine Occasional /HPF (0-10); Urine Color Yellow (Yellow); Urine Specific Gravity 1.018 (1.001-1.035); Urine Urobilinogen < 2.0 EU/DL (0.2-1.0); WBC,Urine 2 /HPF (0-6)
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
[2016-11-21 21:42] LABS: Albumin 3.8 G/DL (3.4-5.0); Bilirubin,Total 0.4 MG/DL (0.2-1.0); Calcium 9.5 MG/DL (8.5-10.1); Osmolality,Calculated 280.3 MOS/KG (273-304); Potassium 3.7 MMOL/L (3.5-5.1); Total Protein 8.1 G/DL (6.4-8.3)
[2016-11-21] MEDS ORDERED: ACETAMINOPHEN 500 MG TABLET PO STA (23:18)
[2016-11-21] MEDS ORDERED: ACETAMINOPHEN 500 MG TABLET ONE (23:22)
[2016-11-21] MEDS ORDERED: ZALEPLON 5 MG CAPSULE PO PRN ×2 (23:40→23:52)
[2016-11-21] MEDS ORDERED: ONDANSETRON 4 MG/2 ML VIAL IV PRN (23:40)
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
[2016-11-22] MEDS: HYDROmorphone 2 MG/1 ML VIAL IV PRN ×3 (01:27→22:05)
[2016-11-22] MEDS: SODIUM CHLORIDE 0.9% 1,000 ML IV SCH ×3 (01:28→22:02)
[2016-11-22 07:45] LABS: Basophils # 0.1 10*3/uL (0.0-0.2); Basophils % 0.9 % (0.0-0.8); Eosinophils # 0.1 10*3/uL (0.0-0.87); Eosinophils % 1.6 % (0.00-10.9); Hematocrit 40.7 VOL% (42.0-52.0); Hemoglobin 13.6 GM/DL (14.0-18.0); Immature Granulocytes % 0.4 %; Immature Granulocytes Absolute 0.04 #; Lymphocytes # 2.7 10*3/uL (1.4-4.0); Lymphocytes % 30.1 % (21.2-54.2); Mean Corpuscular HGB Conc 33.4 GM/DL (32-36); Mean Corpuscular Hemoglobin 29 PG (27-34); Mean Corpuscular Volume 86.4 FL (87-102); Mean Platelet Volume 10.6 FL (9.6-12.0); Monocytes # 0.8 10*3/uL (0.11-0.8); Monocytes % 8.9 % (1.7-12.7); Neutrophils # 5.2 10*3/uL (1.4-7.4); Neutrophils % 58.1 % (38.7-73.9); Platelet Count 350 T/CUMM (130-400); Red Blood Count 4.71 MC/CUMM (3.8-5.5); Red Cell Distribution Width 14.6 % (9.3-17.3); White Blood Count 8.9 T/CUMM (4-12)
--- NOTE | 2016-11-22 07:52 | XRay Report ---
XR KUB Indication: Generalized abdominal pain Comparison: Abdominal x-ray dated November 13, 2016 Technique: Frontal views of the abdomen. Findings: Nonspecific bowel gas pattern. Visualized osseous and surrounding soft tissue structures appear grossly unchanged. Lung bases clear. IMPRESSION: No acute abnormality demonstrated. PROCEDURE INTERPRETED AT [facility] DEPARTMENT OF RADIOLOGY Final Report Signed by: Dr Ric Costa
--- NOTE | 2016-11-22 08:20 | Hospitalist Progress Note ---
Assessment and Plan (1) Nausea & vomiting Status: Acute Assessment and plan: His nausea and vomiting has subsided. It is responsive to intravenous Zofran as needed. Current Visit: Yes (2) Abdominal pain Status: Acute Assessment and plan: His abdominal pain has improved. It is responsive to intravenous hydromorphone. I will consult gastroenterology. Current Visit: Yes Qualifiers: Abdominal location: upper abdomen, unspecified Qualified Code(s): R10.10 - Upper abdominal pain, unspecified (3) Pancreatitis Status: Acute Assessment and plan: During his previous hospitalization, laboratory studies were compatible with acute pancreatitis. Laboratory studies yesterday and today demonstrate normal serum amylase and lipase. Current Visit: Yes Qualifiers: Pancreatitis type: unspecified pancreatitis type Hospitalist: Subjective Interval history: Patient was discharged from the hospital 4 days ago after having been hospitalized with abdominal pain, nausea, and vomiting. Evaluation included a CT scan of the abdomen and pelvis, and MRI of the abdomen, and an MRCP, none of which demonstrated gallbladder disease or other acute abdominal pathology. He did well until yesterday when he reexperienced abdominal pain, nausea, and vomiting. He was admitted to the hospital for these complaints. He states that he is done better since his hospitalization. Zofran has controlled his nausea and vomiting and the hydromorphone has controlled his abdominal pain. He is scheduled to undergo a gallbladder ultrasound this morning. Exam - Constitutional Vitals: Period Temp Pulse Resp BP Sys/Crawford Pulse Ox Last 24 Hr 97.5 F-98.7 F 68-80 18-18 109-144/61-103 96-98 General appearance: no acute distress - Head Head exam: Present: normal inspection - Neck Neck exam: Present: normal inspection - Respiratory Respiratory exam: Present: clear to auscultation bilaterally - Cardiovascular Cardiovascular exam: Present: regular rate and rhythm - GI/Abdominal GI/Abdominal exam: Present: normal bowel sounds, soft, other (Nontender with no palpable masses or hepatosplenomegaly.) - Extremities Exam Extremities exam: Present: normal inspection - Skin Skin exam: Present: normal color, warm, intact Results - Labs CBC & BMP: 11/22/16 07:01 11/21/16 21:06
[2016-11-22 08:21] LABS: Albumin 3.3 G/DL (3.4-5.0); Bilirubin,Total 1.1 MG/DL (0.2-1.0); Calcium 8.7 MG/DL (8.5-10.1); Osmolality,Calculated 278.5 MOS/KG (273-304); Potassium 3.7 MMOL/L (3.5-5.1); Total Protein 6.8 G/DL (6.4-8.3)
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
[2016-11-22] MEDS: metroNIDAZOLE 250 MG TABLET PO SCH ×3 (10:22→21:06)
--- NOTE | 2016-11-22 11:29 | Ultrasound Report ---
History is right upper abdominal pain The liver is 16.5 cm in length. There is increased echogenicity of the liver with attenuation of the ultrasound beam No gallstones or biliary ductal dilatation seen The visualized pancreatic body is normal in size. Portions of the head and tail obscured by bowel gas The proximal visualized aorta and IVC are normal in size No right renal hydronephrosis seen Impression: 1. Fatty infiltration the liver 2. Limited visualization of pancreas PROCEDURE INTERPRETED AT [facility] DEPARTMENT OF RADIOLOGY Final Report Signed by: Dr. Mehreen Connelly
[2016-11-22] MEDS: ATENOLOL/CHLORTHALIDONE 50-25 MG TABLET PO SCH (21:06)
[2016-11-22] MEDS: PRAMIPEXOLE 0.25 MG TABLET PO SCH (21:06)
--- NOTE | 2016-11-23 08:40 | CT Report ---
CT abdomen Indication: Abdominal pain, pancreatitis Comparison: and November 2016 Technique: Axial CT imaging of the abdomen is performed with intravenous and oral contrast. Contrast dose is 100 cc of Omnipaque 350. Findings: Cardiac and lung bases are within normal limits CT abdomen: The liver spleen pancreas and adrenal glands are normal in size and enhancement. No evidence of focal lesion is demonstrated in these solid organs. Kidneys are normal in size and enhancement. No evidence of hydronephrosis or nephrolithiasis is seen. The bowel caliber is normal and no wall thickening or adjacent inflammatory change is seen. No evidence of free fluid or free air is present. Appendix appears within normal limits. Impression: No evidence of acute process demonstrated. This CT exam was performed using one or more the following dose reduction techniques: Automated exposure control, adjustment of the MA and/or KV according to patient size, or use of iterative reconstruction technique. PROCEDURE INTERPRETED AT [facility] DEPARTMENT OF RADIOLOGY Final Report Signed by: Dr. Yo Pryor
--- NOTE | 2016-11-23 08:45 | Gastrointestinal Progress Note ---
<SherdarylLucy Missy - Last Filed: 11/23/16 08:42> Assessment and Plan (1) Abdominal pain Status: Acute Assessment and plan: 11/23-abdominal pain continues. Afebrile. CT of abdomen noted as below. Continue to monitor present time. Plan an addendum to follow Dr. Klein. 11/22-admitted with recurrence of abdominal pain with nausea vomiting as well as fever up to 103. Recently discharged with episode of mild pancreatitis. Lipase level is normal at 113. Afebrile since admission. Symptoms are improved this morning. Awaiting gallbladder ultrasound results. Plan an addendum to followed by Dr. Klein. Current Visit: Yes Qualifiers: Abdominal location: upper abdomen, unspecified Qualified Code(s): R10.10 - Upper abdominal pain, unspecified Gastroenterology - PN: Subj Interval history: CC: Abdominal pain Patient is seen awake alert lying in bed. States he is feeling about the same at this time. States that he did have some abdominal pain last night however he has noted that cold liquids seem to improve this. He also has some nausea but denies any vomiting. He continues to be afebrile without leukocytosis. He has CT of abdomen this morning with oral contrast which shows no acute abdominal processes with no mention of abnormalities in the pancreas. Abdomen is soft, mild tenderness in upper quadrants. ROS: Denies shortness breath or chest pain Exam (Progress Note) - Constitutional Vitals: Period Temp Pulse Resp BP Sys/Crawford Pulse Ox Last 24 Hr 96.8 F-97.8 F 65-84 17-20 104-133/63-78 95-99 General appearance: no acute distress, over weight - Head Head exam: Present: normal inspection, normocephalic - Eye Eye exam: Present: other (Lids and conjunctive are unremarkable). Absent: scleral icterus - ENT ENT exam: Present: normal exam, normal oropharynx - Neck Neck exam: Present: normal inspection - Respiratory Respiratory exam: Present: clear to auscultation bilaterally. Absent: rales, rhonchi, wheezes - Cardiovascular Cardiovascular exam: Present: regular rate and rhythm. Absent: diastolic murmur , JVD, systolic murmur - GI/Abdominal GI/Abdominal exam: Present: normal bowel sounds, soft. Absent: ascites, distended, mass, organomegaly, tenderness - Extremities Exam Extremities exam: Present: normal inspection, full ROM - Back Exam Back exam: Present: normal inspection - Neurological Exam Neurological exam: Present: alert, oriented X3 - Psychiatric Psychiatric exam: Present: normal affect, normal mood - Skin Skin exam: Present: normal color, warm, dry Results - Labs CBC & BMP: 11/22/16 07:01 11/22/16 07:01 Lab Results: I have reviewed the past 24 hour labs - Diagnostic Findings Procedure: CT Abdomen and Pelvis: report reviewed by ca <Mayo Klein - Last Filed: 11/23/16 22:14> Exam (Progress Note) - Constitutional Vitals: Period Temp Pulse Resp BP Sys/Crawford Pulse Ox Last 24 Hr 97.3 F-98.3 F 64-79 16-20 99-118/49-72 92-99 Results - Labs CBC & BMP: 11/22/16 07:01 11/22/16 07:01
--- NOTE | 2016-11-23 09:10 | Hospitalist Progress Note ---
Assessment and Plan (1) Nausea & vomiting Status: Acute Assessment and plan: His nausea and vomiting has subsided. Current Visit: Yes (2) Abdominal pain Status: Acute Assessment and plan: His abdominal pain has improved. Laboratory testing and CT scan of the abdomen do not demonstrate recurrent pancreatitis or pseudocyst. He probably has viral gastroenteritis. He is beginning to tolerate clear liquids. I will advance his diet as tolerated. Current Visit: Yes Qualifiers: Abdominal location: upper abdomen, unspecified Qualified Code(s): R10.10 - Upper abdominal pain, unspecified (3) Pancreatitis Status: Acute Assessment and plan: During his previous hospitalization, laboratory studies were compatible with acute pancreatitis. Laboratory studies yesterday and today demonstrate normal serum amylase and lipase. CT scan does not demonstrate evidence of recurrent acute pancreatitis or pancreatic pseudocyst. Current Visit: Yes Qualifiers: Pancreatitis type: unspecified pancreatitis type Hospitalist: Subjective Interval history: Mr. Mc continues to complain of abdominal pain. He is not experiencing nausea, vomiting, or diarrhea. He is tolerating small amounts of clear liquids. He underwent an abdominal CT scan today demonstrating no evidence of pancreatitis, pancreatic cyst, cholelithiasis, or cholecystitis. It is highly likely that he has a viral gastroenteritis similar to that which his son has recently experienced. I will attempt to advance his diet as tolerated. When he is able to fully consume liquids, he can be discharged. Exam - Constitutional Vitals: Period Temp Pulse Resp BP Sys/Crawford Pulse Ox Last 24 Hr 96.8 F-97.8 F 65-84 17-20 104-133/63-78 95-99 General appearance: no acute distress - Head Head exam: Present: normal inspection - ENT ENT exam: Present: normal exam - Neck Neck exam: Present: normal inspection - Respiratory Respiratory exam: Present: clear to auscultation bilaterally - Cardiovascular Cardiovascular exam: Present: regular rate and rhythm - GI/Abdominal GI/Abdominal exam: Present: normal bowel sounds, soft, other (Nontender with no palpable masses or hepatosplenomegaly.) - Extremities Exam Extremities exam: Present: normal inspection - Skin Skin exam: Present: normal color, warm, intact Results - Labs CBC & BMP: 11/22/16 07:01 11/22/16 07:01
[2016-11-23] MEDS: metroNIDAZOLE 250 MG TABLET PO SCH ×3 (09:45→20:12)
[2016-11-23] MEDS: SODIUM CHLORIDE 0.9% 1,000 ML IV SCH ×2 (09:46→16:31)
[2016-11-23] MEDS: PRAMIPEXOLE 0.25 MG TABLET PO SCH (20:12)
[2016-11-23] MEDS: ATENOLOL/CHLORTHALIDONE 50-25 MG TABLET PO SCH (20:29)
[2016-11-23] MEDS: HYDROmorphone 2 MG/1 ML VIAL IV PRN (23:52)
[2016-11-24] MEDS: SODIUM CHLORIDE 0.9% 1,000 ML IV SCH ×2 (05:32→13:39)
[2016-11-24 06:58] LABS: Basophils # 0.1 10*3/uL (0.0-0.2); Basophils % 0.6 % (0.0-0.8); Eosinophils # 0.1 10*3/uL (0.0-0.87); Eosinophils % 1.4 % (0.00-10.9); Hematocrit 40.9 VOL% (42.0-52.0); Hemoglobin 13.4 GM/DL (14.0-18.0); Immature Granulocytes % 0.4 %; Immature Granulocytes Absolute 0.03 #; Lymphocytes # 2.2 10*3/uL (1.4-4.0); Lymphocytes % 25.7 % (21.2-54.2); Mean Corpuscular HGB Conc 32.8 GM/DL (32-36); Mean Corpuscular Hemoglobin 29 PG (27-34); Mean Corpuscular Volume 88.9 FL (87-102); Mean Platelet Volume 10.5 FL (9.6-12.0); Monocytes # 0.8 10*3/uL (0.11-0.8); Monocytes % 9.3 % (1.7-12.7); Neutrophils # 5.3 10*3/uL (1.4-7.4); Neutrophils % 62.6 % (38.7-73.9); Platelet Count 325 T/CUMM (130-400); Red Cell Distribution Width 14.6 % (9.3-17.3); White Blood Count 8.4 T/CUMM (4-12)
[2016-11-24 07:26] LABS: Calcium 8.2 MG/DL (8.5-10.1); Osmolality,Calculated 279.3 MOS/KG (273-304); Potassium 3.8 MMOL/L (3.5-5.1)
--- NOTE | 2016-11-24 08:56 | Gastrointestinal Progress Note ---
<Lucy Nunez - Last Filed: 11/24/16 08:54> Assessment and Plan (1) Abdominal pain Status: Acute Assessment and plan: 11/24-No c/o abd pain. No N/V. Afebrile. Advance diet to soft and monitor. Plan and addendum to follow by Dr Klein. 11/23-abdominal pain continues. Afebrile. CT of abdomen noted as below. Continue to monitor present time. Plan an addendum to follow Dr. Klein. 11/22-admitted with recurrence of abdominal pain with nausea vomiting as well as fever up to 103. Recently discharged with episode of mild pancreatitis. Lipase level is normal at 113. Afebrile since admission. Symptoms are improved this morning. Awaiting gallbladder ultrasound results. Plan an addendum to followed by Dr. Klein. Qualifiers: Abdominal location: upper abdomen, unspecified Qualified Code(s): R10.10 - Upper abdominal pain, unspecified Gastroenterology - PN: Subj Interval history: CC: Abdominal pain Pt is seen awake and alert, sitting on side of bed. States that he is feeling some better at this time. Denies any abdominal pain other than an occasional "cramp" in his RUQ. He denies any nausea or vomiting. Abdomen is soft, nontender. He is afebrile. He is tolerating a full liquid diet well. We will advance this to soft and continue to monitor. ROS: Denies SOB or chest pain Exam (Progress Note) - Constitutional Vitals: Period Temp Pulse Resp BP Sys/Crawford Pulse Ox Last 24 Hr 97.3 F-98.3 F 64-92 15-20 99-117/49-70 92-99 General appearance: no acute distress, over weight - Head Head exam: Present: normal inspection, normocephalic - Eye Eye exam: Present: other (lids and conjunctiva unremarkable). Absent: scleral icterus - ENT ENT exam: Present: normal exam, normal oropharynx - Neck Neck exam: Present: normal inspection - Respiratory Respiratory exam: Present: clear to auscultation bilaterally. Absent: rales, rhonchi, wheezes - Cardiovascular Cardiovascular exam: Present: regular rate and rhythm. Absent: diastolic murmur , JVD, systolic murmur - GI/Abdominal GI/Abdominal exam: Present: normal bowel sounds, soft. Absent: ascites, distended, mass, organomegaly, tenderness - Extremities Exam Extremities exam: Present: normal inspection, full ROM - Back Exam Back exam: Present: normal inspection - Neurological Exam Neurological exam: Present: alert, oriented X3 - Psychiatric Psychiatric exam: Present: normal affect, normal mood - Skin Skin exam: Present: normal color, warm, dry Results - Labs CBC & BMP: 11/24/16 05:37 11/24/16 05:37 Lab Results: I have reviewed the past 24 hour labs <Mayo Klein - Last Filed: 11/24/16 21:19> Exam (Progress Note) - Constitutional Vitals: Period Temp Pulse Resp BP Sys/Crawford Pulse Ox Last 24 Hr 97.2 F-97.9 F 73-92 15-20 100-114/52-73 95-98 Results - Labs CBC & BMP: 11/24/16 05:37 11/24/16 05:37
[2016-11-24] MEDS: metroNIDAZOLE 250 MG TABLET PO SCH ×2 (09:03→15:30)
[2016-11-24] MEDS ORDERED: ACETAMINOPHEN 325 MG TABLET PO PRN (10:04)
[2016-11-24 11:59] VITALS: BP 114/73
--- NOTE | 2016-11-24 15:35 | Discharge Summary ---
Hospital Course - Hospital Course Hospital Course: The patient was admitted with abdominal pain and vomiting. He had just been discharged from an admission for acute pancreatitis 4 days prior to admission. Workup however was negative for pancreatitis including CT and amylase. He was seen by GI who felt this was gastritis/gastroenteritis. He was treated conservatively. Today he had tolerated a regular diet and feels he is ready to go home. I had a discussion regarding his fatty liver condition. This is because exclusively by high sugar intake and the best way to reverse this is to eliminate all sugar and go on a very low-carbohydrate, Atkins type diet which he is willing to do. Diagnosis - Discharge Diagnosis (1) Gastroenteritis Status: Acute (2) Fatty liver Status: Chronic (3) Right upper quadrant pain Status: Resolved (4) Nausea & vomiting Status: Resolved Discharge Plan - Discharge Medications Continue Pramipexole Di-HCl [Mirapex] 0.75 mg PO BEDTIME Ondansetron [Ondansetron Odt] 8 mg PO Q4H PRN #10 tab.rapdis PRN Reason: Nausea metroNIDAZOLE TAB [Flagyl Cap/Tab] 250 mg PO TID 10 Days Atenolol/Chlorthalidone 50-25 [Tenoretic 50-25] 1 tablet PO BEDTIME Zolpidem [Ambien] 10 mg PO BEDTIME PRN PRN Reason: Sleep - Follow Up or Referral - Forms/Instructions Exam - Constitutional Vitals: Period Temp Pulse Resp BP Sys/Crawford Pulse Ox Last 24 Hr 97.2 F-98.3 F 64-92 15-20 100-117/52-73 95-99 - GI/Abdominal GI/Abdominal exam: Present: soft. Absent: tenderness Discharge Results Labs on day of discharge: Labs from last 24 hours 11/24/16 11/24/16 05:37 05:37 WBC 8.4 RBC 4.60 Hgb 13.4 L Hct 40.9 L MCV 88.9 MCH 29 MCHC 32.8 RDW 14.6 Plt Count 325 MPV 10.5 Neut % (Auto) 62.6 Lymph % (Auto) 25.7 [place] % (Auto) 9.3 Eos % (Auto) 1.4 Baso % (Auto) 0.6 Neut # (Auto) 5.3 Lymph # (Auto) 2.2 [place] # (Auto) 0.8 Eos # (Auto) 0.1 Baso # (Auto) 0.1 Immature Gran % 0.4 Nucleated RBC % 0.0 Immature Gran # 0.03 Nucleated RBCs # 0.00 Immature Plt Fraction 0.0 Sodium 141 Potassium 3.8 Chloride 103 Carbon Dioxide 34 H Anion Gap 7.8 BUN 10 Creatinine 0.90 GFR Calculation 147 BUN/Creatinine Ratio 11.00 Glucose 102 Calculated Osmolality 279.3 Calcium 8.2 L DS: Provider Date of admission: 11/21/16 23:40 Primary care physician: Santi Ojeda Attending physician on admission: Mani Rodriguez MD Consults: 11/21/16 23:40 Consult to Physician [CONS] Routine Comment: patient returns Consulting Provider: Mayo Klein Person Notified: ADELINA VERMA Date Notified: 11/22/16 Time Notified: 08:26 Discharging clinician: Sumanth Nicholson MD
== END 2016-11-24 16:37 | disposition home or self-care (01) | DRG 392 ==
LOC: N.ED 18:07 → INTOOBSV 23:40 → N.EDINP 23:40 → SUATTDRO 23:40 → N.5E 11-22 00:27
PROVIDERS: ADMIT Internal Medicine; ATTEND Family Medicine

== ENCOUNTER 2017-02-16 03:35 | Inpatient (IN) ==
[2017-02-16] MEDS ORDERED: ONDANSETRON 4 MG/2 ML VIAL IV STA ×2 (04:11→06:02)
[2017-02-16] MEDS ORDERED: SODIUM CHLORIDE 0.9% 1,000 ML IV STA (04:11)
[2017-02-16] MEDS ORDERED: HYDROmorphone 2 MG/1 ML VIAL IV STA ×2 (04:11→06:01)
[2017-02-16] MEDS ORDERED: ONDANSETRON 4 MG/2 ML VIAL ONE ×3 (04:25→15:57)
[2017-02-16] MEDS ORDERED: HYDROmorphone 2 MG/1 ML VIAL ONE ×2 (04:25→06:03)
[2017-02-16 04:54] LABS: Basophils # 0.1 10*3/uL (0.0-0.2); Basophils % 0.3 % (0.0-0.8); Eosinophils # 0.3 10*3/uL (0.0-0.87); Eosinophils % 1.5 % (0.00-10.9); Hematocrit 43.4 VOL% (42.0-52.0); Hemoglobin 14.8 GM/DL (14.0-18.0); Immature Granulocytes % 0.5 %; Immature Granulocytes Absolute 0.08 #; Lymphocytes # 1.7 10*3/uL (1.4-4.0); Lymphocytes % 10.1 % (21.2-54.2); Mean Corpuscular HGB Conc 34.1 GM/DL (32-36); Mean Corpuscular Hemoglobin 29 PG (27-34); Mean Corpuscular Volume 84.8 FL (87-102); Mean Platelet Volume 9.9 FL (9.6-12.0); Monocytes # 1.8 10*3/uL (0.11-0.8); Monocytes % 10.6 % (1.7-12.7); Platelet Count 493 T/CUMM (130-400); Red Blood Count 5.12 MC/CUMM (3.8-5.5); Red Cell Distribution Width 13.5 % (9.3-17.3); White Blood Count 16.9 T/CUMM (4-12)
[2017-02-16 04:55] LABS: Albumin 3.6 G/DL (3.4-5.0); Calcium 9.4 MG/DL (8.5-10.1); Osmolality,Calculated 267.2 MOS/KG (273-304); Potassium 3.7 MMOL/L (3.5-5.1); Total Protein 8.7 G/DL (6.4-8.3)
[2017-02-16] MEDS ORDERED: ZALEPLON 5 MG CAPSULE PO PRN (07:44)
[2017-02-16] MEDS ORDERED: traZODone 50 MG TABLET PO PRN (07:44)
[2017-02-16] MEDS: SODIUM CHLORIDE 0.9% 1,000 ML IV SCH ×2 (08:19→17:56)
[2017-02-16] MEDS: ENOXAPARIN 40 MG/0.4 ML SYRINGE SUBCUT SCH (08:20)
[2017-02-16] MEDS: DOCUSATE SODIUM 100 MG CAPSULE PO SCH ×2 (08:20→21:58)
[2017-02-16 08:30] LABS: Risk Ratio 2.72; VLDL CHOLESTEROL 23.2 MG/DL
[2017-02-16] MEDS: CIPROFLOXACIN INJ 400 MG in PREMIX 1 EACH IV SCH ×2 (08:47→16:00)
[2017-02-16 12:39] LABS: Apearance,Urine CLEAR (Clear); Bilirubin,Urine Negative (Negative); Blood, Urine Small mg/dL (Negative); Glucose,Urine (UA) Negative (Negative); Ketones,Urine Negative (Negative); Nitrite,Urine Negative (Negative); Protein,Urine Negative; RBC,Urine <1 /HPF (0-4); Urine Color Yellow (Yellow); Urine Urobilinogen < 2.0 EU/DL (0.2-1.0); WBC,Urine 1 /HPF (0-6)
[2017-02-16] MEDS: ONDANSETRON 4 MG/2 ML VIAL IV PRN (16:05)
[2017-02-16] MEDS: PRAMIPEXOLE 0.25 MG TABLET PO SCH (20:13)
[2017-02-16] MEDS: HYDROmorphone 2 MG/1 ML VIAL IV PRN (20:14)
[2017-02-17] MEDS: SODIUM CHLORIDE 0.9% 1,000 ML IV SCH ×5 (00:13→23:35)
[2017-02-17] MEDS: CIPROFLOXACIN INJ 400 MG in PREMIX 1 EACH IV SCH ×4 (00:18→23:35)
[2017-02-17 07:07] LABS: Basophils # 0.1 10*3/uL (0.0-0.2); Basophils % 0.5 % (0.0-0.8); Eosinophils # 0.3 10*3/uL (0.0-0.87); Eosinophils % 3.1 % (0.00-10.9); Hematocrit 41.6 VOL% (42.0-52.0); Hemoglobin 13.4 GM/DL (14.0-18.0); Immature Granulocytes % 0.5 %; Immature Granulocytes Absolute 0.05 #; Lymphocytes # 1.7 10*3/uL (1.4-4.0); Mean Corpuscular HGB Conc 32.2 GM/DL (32-36); Mean Corpuscular Hemoglobin 28 PG (27-34); Mean Corpuscular Volume 86.5 FL (87-102); Mean Platelet Volume 10.1 FL (9.6-12.0); Monocytes # 1.1 10*3/uL (0.11-0.8); Neutrophils # 7.5 10*3/uL (1.4-7.4); Neutrophils % 69.9 % (38.7-73.9); Platelet Count 497 T/CUMM (130-400); Red Blood Count 4.81 MC/CUMM (3.8-5.5); Red Cell Distribution Width 13.5 % (9.3-17.3); White Blood Count 10.7 T/CUMM (4-12)
[2017-02-17 07:42] LABS: Calcium 8.8 MG/DL (8.5-10.1); Osmolality,Calculated 270.8 MOS/KG (273-304); Potassium 3.6 MMOL/L (3.5-5.1)
[2017-02-17] MEDS: DOCUSATE SODIUM 100 MG CAPSULE PO SCH ×2 (09:04→21:09)
[2017-02-17] MEDS: ENOXAPARIN 40 MG/0.4 ML SYRINGE SUBCUT SCH (09:04)
[2017-02-17] MEDS: ONDANSETRON 4 MG/2 ML VIAL IV PRN ×2 (09:58→21:11)
[2017-02-17] MEDS: HYDROmorphone 2 MG/1 ML VIAL IV PRN ×2 (10:02→21:12)
[2017-02-17] MEDS ORDERED: ZALEPLON 5 MG CAPSULE PO PRN ×2 (15:50→16:26)
[2017-02-17] MEDS: PRAMIPEXOLE 0.25 MG TABLET PO SCH (21:09)
[2017-02-17] MEDS: traZODone 50 MG TABLET PO SCH (21:10)
[2017-02-18] MEDS: CIPROFLOXACIN INJ 400 MG in PREMIX 1 EACH IV SCH ×3 (08:50→23:51)
[2017-02-18] MEDS: DOCUSATE SODIUM 100 MG CAPSULE PO SCH ×2 (08:54→20:50)
[2017-02-18] MEDS: ENOXAPARIN 40 MG/0.4 ML SYRINGE SUBCUT SCH (08:54)
[2017-02-18] MEDS: SODIUM CHLORIDE 0.9% 1,000 ML IV SCH ×3 (11:44→21:38)
[2017-02-18] MEDS: PANTOPRAZOLE 40 MG TABLET PO SCH (11:45)
[2017-02-18] MEDS ORDERED: ZALEPLON 5 MG CAPSULE PO PRN (15:52)
[2017-02-18] MEDS: HYDROmorphone 2 MG/1 ML VIAL IV PRN (17:59)
[2017-02-18] MEDS: PRAMIPEXOLE 0.25 MG TABLET PO SCH (20:49)
[2017-02-18] MEDS: traZODone 50 MG TABLET PO SCH (20:50)
[2017-02-19] MEDS: SODIUM CHLORIDE 0.9% 1,000 ML IV SCH ×2 (05:53→09:04)
[2017-02-19 06:30] LABS: Basophils # 0.1 10*3/uL (0.0-0.2); Basophils % 0.9 % (0.0-0.8); Eosinophils # 0.3 10*3/uL (0.0-0.87); Eosinophils % 5.7 % (0.00-10.9); Hematocrit 39.2 VOL% (42.0-52.0); Hemoglobin 12.7 GM/DL (14.0-18.0); Immature Granulocytes % 0.4 %; Immature Granulocytes Absolute 0.02 #; Lymphocytes # 1.5 10*3/uL (1.4-4.0); Mean Corpuscular HGB Conc 32.4 GM/DL (32-36); Mean Corpuscular Hemoglobin 28 PG (27-34); Mean Corpuscular Volume 86.7 FL (87-102); Monocytes # 0.7 10*3/uL (0.11-0.8); Monocytes % 12.2 % (1.7-12.7); Neutrophils # 2.9 10*3/uL (1.4-7.4); Neutrophils % 52.8 % (38.7-73.9); Platelet Count 442 T/CUMM (130-400); Red Blood Count 4.52 MC/CUMM (3.8-5.5); Red Cell Distribution Width 13.5 % (9.3-17.3); White Blood Count 5.4 T/CUMM (4-12)
[2017-02-19 06:56] LABS: Calcium 8.7 MG/DL (8.5-10.1); Osmolality,Calculated 278.3 MOS/KG (273-304); Potassium 4.4 MMOL/L (3.5-5.1)
[2017-02-19 07:02] LABS: Albumin 2.9 G/DL (3.4-5.0); Bilirubin,Direct 0.14 MG/DL (0.0-0.20); Bilirubin,Indirect 0.7 MG/DL (0.0-1.0); Bilirubin,Total 0.8 MG/DL (0.2-1.0); Total Protein 6.4 G/DL (6.4-8.3)
[2017-02-19] MEDS: CIPROFLOXACIN INJ 400 MG in PREMIX 1 EACH IV SCH (09:03)
[2017-02-19] MEDS: PANTOPRAZOLE 40 MG TABLET PO SCH (09:04)
[2017-02-19] MEDS: ENOXAPARIN 40 MG/0.4 ML SYRINGE SUBCUT SCH (09:04)
[2017-02-19] MEDS: DOCUSATE SODIUM 100 MG CAPSULE PO SCH (09:04)
[2017-02-19 10:12] VITALS: BP 160/53
== END 2017-02-19 11:33 | disposition home or self-care (01) | DRG 439 ==
LOC: N.ED 03:35 → SUATTDRO 06:25 → N.EDINP 06:25 → N.5E 07:30
PROVIDERS: ADMIT Internal Medicine; ATTEND Internal Medicine

== ENCOUNTER 2021-03-19 12:19 | Inpatient (IN) ==
[2021-03-19 13:10] LABS: Basophils # 0.1 10*3/uL (0.0-0.2); Basophils % 0.4 % (0.0-0.8); Eosinophils # 0.1 10*3/uL (0.0-0.87); Eosinophils % 0.6 % (0.00-10.9); Hematocrit 18.8 VOL% (42.0-52.0); Immature Granulocytes Absolute 0.27 #; Lymphocytes # 1.4 10*3/uL (1.4-4.0); Lymphocytes % 10.5 % (21.2-54.2); Mean Corpuscular HGB Conc 30.9 GM/DL (32-36); Mean Corpuscular Volume 86.6 FL (87-102); Mean Platelet Volume 9.5 FL (9.6-12.0); Monocytes % 9.9 % (1.7-12.7); NRBC # 0.25 10*3/uL; Neutrophils % 76.6 % (38.7-73.9); Red Blood Count 2.17 MC/CUMM (3.8-5.5); Red Cell Distribution Width 16.3 % (9.3-17.3); White Blood Count 13.4 T/CUMM (4-12)
[2021-03-19 13:27] LABS: Platelet Count 280 T/CUMM (130-400)
[2021-03-19 13:31] LABS: Calcium 7.7 MG/DL (8.5-10.1); Osmolality,Calculated 277.5 MOS/KG (273-304); Potassium 3.7 MMOL/L (3.5-5.1)
[2021-03-19 13:34] LABS: Hemoglobin 5.8 GM/DL (14.0-18.0)
[2021-03-19 13:40] LABS: PT Patient Result 11.3 SECS (10.5-12.0); Partial Thromboplastin Time 23.5 SECS (23.8-32.1)
[2021-03-19] MEDS ORDERED: DEXTROSE 10% 250 ML BAG IV PRN (17:37)
[2021-03-19] MEDS ORDERED: ONDANSETRON 4 MG/2 ML VIAL IV PRN (17:37)
[2021-03-19] MEDS ORDERED: SODIUM CHLORIDE 0.9% 1,000 ML IV PRN (17:37)
[2021-03-19] MEDS ORDERED: DOCUSATE SODIUM 100 MG CAPSULE PO PRN (17:37)
[2021-03-19] MEDS ORDERED: GLUCAGON 1 MG VIAL IM PRN (17:37)
[2021-03-19] MEDS ORDERED: SODIUM CHLORIDE 0.9% 1,000 ML IV STA (17:41)
[2021-03-19 19:24] LABS: Thyroid Stimulating Hormone 1.82 uIU/ml (0.358-3.74)
[2021-03-19] MEDS: DULoxetine 30 MG CAPSULE PO SCH (22:42)
[2021-03-19] MEDS: ZALEPLON 5 MG CAPSULE PO SCH (22:43)
[2021-03-19] MEDS: PRAMIPEXOLE 0.25 MG TABLET PO SCH (22:43)
[2021-03-20] MEDS: LACTATED RINGERS 1,000 ML IV SCH ×3 (00:59→09:34)
[2021-03-20] MEDS: CLORAZEPATE 3.75 MG TABLET PO SCH ×2 (01:40→08:40)
[2021-03-20] MEDS: DULoxetine 30 MG CAPSULE PO SCH ×2 (08:39→20:38)
[2021-03-20] MEDS: GABAPENTIN 400 MG CAPSULE PO SCH ×4 (08:40→20:39)
[2021-03-20] MEDS: amLODIPine 5 MG TABLET PO SCH (08:40)
[2021-03-20] MEDS: busPIRone 15 MG TABLET PO SCH ×2 (08:40→20:39)
[2021-03-20 08:46] LABS: Basophils # 0.1 10*3/uL (0.0-0.2); Basophils % 0.5 % (0.0-0.8); Eosinophils # 0.1 10*3/uL (0.0-0.87); Eosinophils % 0.9 % (0.00-10.9); Hematocrit 23.9 VOL% (42.0-52.0); Hemoglobin 7.7 GM/DL (14.0-18.0); Immature Granulocytes Absolute 0.33 #; Lymphocytes # 1.9 10*3/uL (1.4-4.0); Lymphocytes % 17.3 % (21.2-54.2); Mean Corpuscular HGB Conc 32.2 GM/DL (32-36); Mean Corpuscular Volume 86.3 FL (87-102); Mean Platelet Volume 9.9 FL (9.6-12.0); Monocytes % 11.3 % (1.7-12.7); NRBC # 0.25 10*3/uL; Platelet Count 248 T/CUMM (130-400); Red Blood Count 2.77 MC/CUMM (3.8-5.5); Red Cell Distribution Width 16.3 % (9.3-17.3); White Blood Count 11.2 T/CUMM (4-12)
[2021-03-20 08:58] LABS: Calcium 7.7 MG/DL (8.5-10.1); Osmolality,Calculated 272.1 MOS/KG (273-304); Potassium 3.3 MMOL/L (3.5-5.1)
[2021-03-20] MEDS ORDERED: OXYMETAZOLINE 0.05% NASAL SPRAY 15 ML BOTTLE BOTH NARES PRN ×2 (09:02→10:06)
[2021-03-20] MEDS: ALPRAZolam 0.25 MG TABLET PO PRN (10:27)
[2021-03-20] MEDS: POTASSIUM CHLORIDE 20 MEQ TABLET PO PRN ×3 (10:27→14:56)
[2021-03-20] MEDS ORDERED: SODIUM CHLORIDE 0.9% 1,000 ML IV PRN (10:57)
[2021-03-20 16:38] LABS: Hematocrit 26.9 VOL% (42.0-52.0)
[2021-03-20 16:42] LABS: Hemoglobin 8.6 GM/DL (14.0-18.0)
[2021-03-20] MEDS: ZALEPLON 5 MG CAPSULE PO SCH ×2 (20:38→20:44)
[2021-03-20] MEDS: PRAMIPEXOLE 0.25 MG TABLET PO SCH (20:38)
[2021-03-20] MEDS: traZODone 50 MG TABLET PO SCH (20:39)
[2021-03-20] MEDS ORDERED: PRAMIPEXOLE 0.75 MG PO SCH (21:00)
[2021-03-21 06:51] LABS: Basophils % 0.4 % (0.0-0.8); Eosinophils # 0.2 10*3/uL (0.0-0.87); Eosinophils % 1.6 % (0.00-10.9); Hematocrit 23.4 VOL% (42.0-52.0); Hemoglobin 7.3 GM/DL (14.0-18.0); Immature Granulocytes % 2.8 %; Lymphocytes % 19.1 % (21.2-54.2); Mean Corpuscular HGB Conc 31.2 GM/DL (32-36); Mean Corpuscular Volume 88.3 FL (87-102); Mean Platelet Volume 9.9 FL (9.6-12.0); Monocytes % 8.3 % (1.7-12.7); NRBC # 0.34 10*3/uL; Neutrophils % 67.8 % (38.7-73.9); Platelet Count 247 T/CUMM (130-400); Red Blood Count 2.65 MC/CUMM (3.8-5.5); Red Cell Distribution Width 16.8 % (9.3-17.3); White Blood Count 10.6 T/CUMM (4-12)
[2021-03-21 07:21] LABS: Calcium 7.8 MG/DL (8.5-10.1); Osmolality,Calculated 282.4 MOS/KG (273-304); Potassium 3.9 MMOL/L (3.5-5.1)
[2021-03-21] MEDS ORDERED: MORPHINE 2 MG/1 ML SYRINGE IV ONE (08:59)
[2021-03-21] MEDS: DULoxetine 30 MG CAPSULE PO SCH ×2 (09:14→20:23)
[2021-03-21] MEDS: GABAPENTIN 400 MG CAPSULE PO SCH ×4 (09:14→20:24)
[2021-03-21] MEDS: busPIRone 15 MG TABLET PO SCH ×2 (09:14→20:24)
[2021-03-21] MEDS: CLORAZEPATE 3.75 MG TABLET PO SCH (09:14)
[2021-03-21] MEDS: amLODIPine 5 MG TABLET PO SCH (09:15)
[2021-03-21] MEDS: ALPRAZolam 0.25 MG TABLET PO PRN ×2 (09:15→16:14)
[2021-03-21] MEDS: POTASSIUM CHLORIDE 20 MEQ TABLET PO PRN (09:15)
[2021-03-21] MEDS: AMOXICILLIN/CLAV 875 MG TABLET PO SCH ×2 (10:24→20:26)
[2021-03-21] MEDS: PHENYLEPHRINE 0.5% NASAL SPRAY 15 ML BOTTLE BOTH NARES PRN ×2 (10:48→15:34)
[2021-03-21] MEDS ORDERED: DEXTROSE 10% 25 GM/250 ML BAG IV PRN (10:56)
[2021-03-21] MEDS ORDERED: ERGOCALCIFEROL 50,000 UNIT CAPSULE PO SCH (11:00)
[2021-03-21 17:00] LABS: Hematocrit 28.7 VOL% (42.0-52.0)
[2021-03-21 17:06] LABS: Hemoglobin 8.8 GM/DL (14.0-18.0)
[2021-03-21] MEDS ORDERED: CALCIUM GLUCONATE 2,000 MG in SODIUM CHLORIDE 0.9% 100 ML IV ONE (20:00)
[2021-03-21] MEDS: PRAMIPEXOLE 0.25 MG TABLET PO SCH (20:23)
[2021-03-21] MEDS: traZODone 50 MG TABLET PO SCH (20:24)
[2021-03-21] MEDS: ZALEPLON 5 MG CAPSULE PO SCH (20:25)
[2021-03-21] MEDS: CALCIUM (CARBONATE) 500 MG TABLET PO SCH (20:25)
[2021-03-22 01:27] LABS: Hematocrit 26.2 VOL% (42.0-52.0); Hemoglobin 8.2 GM/DL (14.0-18.0)
[2021-03-22 05:59] LABS: Basophils % 0.4 % (0.0-0.8); Eosinophils # 0.2 10*3/uL (0.0-0.87); Eosinophils % 2.2 % (0.00-10.9); Hemoglobin 7.6 GM/DL (14.0-18.0); Immature Granulocytes % 4.7 %; Immature Granulocytes Absolute 0.46 #; Lymphocytes # 2.5 10*3/uL (1.4-4.0); Mean Corpuscular HGB Conc 30.4 GM/DL (32-36); Mean Corpuscular Volume 89.6 FL (87-102); Mean Platelet Volume 10.2 FL (9.6-12.0); Monocytes % 7.8 % (1.7-12.7); NRBC # 0.41 10*3/uL; Neutrophils % 58.9 % (38.7-73.9); Platelet Count 227 T/CUMM (130-400); Red Blood Count 2.79 MC/CUMM (3.8-5.5); Red Cell Distribution Width 16.8 % (9.3-17.3); White Blood Count 9.7 T/CUMM (4-12)
[2021-03-22 06:12] LABS: INR 0.9; PT Patient Result 10.3 SECS (10.5-12.0)
[2021-03-22 06:32] LABS: Alanine Aminotransferase 20 U/L (16-61); Albumin 2.2 G/DL (3.4-5.0); Alkaline Phosphatase 47 U/L (45-117); Aspartate Amino Transferase 22 U/L (0-37); Bilirubin,Total < 0.39 MG/DL (0.20-1.00); Blood Urea Nitrogen 14 MG/DL (7-18); Calcium 7.5 MG/DL (8.5-10.1); Carbon Dioxide 30 MMOL/L (21-32); Estimated Glom Filtration Rate 165 ML/MIN; Glucose 135 MG/DL (74-106); Osmolality,Calculated 283.3 MOS/KG (273-304); Potassium 3.7 MMOL/L (3.5-5.1); Sodium 141 MMOL/L (136-145); Total Protein 5.6 G/DL (6.4-8.2)
[2021-03-22 06:33] LABS: Risk Ratio 4.1; VLDL Cholesterol 25.4 MG/DL
[2021-03-22] MEDS: DULoxetine 30 MG CAPSULE PO SCH ×2 (08:43→20:14)
[2021-03-22] MEDS: AMOXICILLIN/CLAV 875 MG TABLET PO SCH ×2 (08:43→20:14)
[2021-03-22] MEDS: busPIRone 15 MG TABLET PO SCH ×2 (08:43→20:13)
[2021-03-22] MEDS: GABAPENTIN 400 MG CAPSULE PO SCH ×4 (08:43→20:14)
[2021-03-22] MEDS: amLODIPine 5 MG TABLET PO SCH (08:44)
[2021-03-22] MEDS: CALCIUM (CARBONATE) 500 MG TABLET PO SCH ×2 (08:44→20:14)
[2021-03-22] MEDS: POTASSIUM CHLORIDE 20 MEQ TABLET PO PRN (08:44)
[2021-03-22] MEDS: CLORAZEPATE 3.75 MG TABLET PO SCH (08:44)
[2021-03-22] MEDS ORDERED: SODIUM CHLORIDE 0.9% 1,000 ML IV PRN (11:23)
[2021-03-22] MEDS: SODIUM CHLORIDE 0.65% NASAL SPRAY 45 ML BOTTLE BOTH NARES SCH ×3 (14:07→20:25)
[2021-03-22 16:18] LABS: % Iron Saturation 5.7 % (18-50)
[2021-03-22] MEDS: PRAMIPEXOLE 0.25 MG TABLET PO SCH (20:14)
[2021-03-22] MEDS: traZODone 50 MG TABLET PO SCH (20:14)
[2021-03-22] MEDS: ZALEPLON 5 MG CAPSULE PO SCH (20:14)
[2021-03-23 06:30] LABS: Basophils # 0.1 10*3/uL (0.0-0.2); Basophils % 0.6 % (0.0-0.8); Eosinophils # 0.2 10*3/uL (0.0-0.87); Eosinophils % 2.1 % (0.00-10.9); Hematocrit 28.6 VOL% (42.0-52.0); Hemoglobin 8.9 GM/DL (14.0-18.0); Immature Granulocytes % 4.6 %; Immature Granulocytes Absolute 0.41 #; Lymphocytes # 2.1 10*3/uL (1.4-4.0); Lymphocytes % 23.8 % (21.2-54.2); Mean Corpuscular HGB Conc 31.1 GM/DL (32-36); Mean Corpuscular Volume 87.7 FL (87-102); Mean Platelet Volume 9.9 FL (9.6-12.0); Monocytes % 5.6 % (1.7-12.7); NRBC # 0.19 10*3/uL; Neutrophils % 63.3 % (38.7-73.9); Platelet Count 282 T/CUMM (130-400); Red Blood Count 3.26 MC/CUMM (3.8-5.5); Red Cell Distribution Width 16.3 % (9.3-17.3); White Blood Count 8.9 T/CUMM (4-12)
[2021-03-23 06:47] LABS: Calcium 7.8 MG/DL (8.5-10.1); Osmolality,Calculated 284.1 MOS/KG (273-304); Potassium 3.7 MMOL/L (3.5-5.1)
[2021-03-23] MEDS: CALCIUM (CARBONATE) 500 MG TABLET PO SCH (08:39)
[2021-03-23] MEDS: DULoxetine 30 MG CAPSULE PO SCH (08:39)
[2021-03-23] MEDS: GABAPENTIN 400 MG CAPSULE PO SCH (08:39)
[2021-03-23] MEDS: amLODIPine 5 MG TABLET PO SCH (08:39)
[2021-03-23] MEDS: CLORAZEPATE 3.75 MG TABLET PO SCH (08:39)
[2021-03-23] MEDS: AMOXICILLIN/CLAV 875 MG TABLET PO SCH (08:39)
[2021-03-23] MEDS: SODIUM CHLORIDE 0.65% NASAL SPRAY 45 ML BOTTLE BOTH NARES SCH (08:40)
[2021-03-23] MEDS: busPIRone 15 MG TABLET PO SCH (08:40)
[2021-03-23 08:50] VITALS: BP 105/62
== END 2021-03-23 10:45 | disposition home or self-care (01) | DRG 150 ==
LOC: N.ED 12:19 → SUATTDRO 17:36 → N.EDINP 17:36 → N.TELEN 18:57 → N.CC 03-20 02:18
PROVIDERS: ADMIT Internal Medicine; ATTEND Internal Medicine